=== PATIENT | female | born 1990 | race Caucasian/White ===

== ENCOUNTER 2017-12-09 17:12 | Emergency (ER) | payer SELFPAY ==
[2017-12-09] MEDS ORDERED: diPHENhydraMINE PO* 50 MG PO ONE (20:07)
[2017-12-09] MEDS ORDERED: predniSONE TAB* 20 MG PO ONE (20:07)
--- NOTE | 2017-12-09 20:13 | ED ---
Skin Complaint - HPI Summary HPI Summary: 27 female presents to ED with complaints of rash and possible bed bug bites that occurred 2 days ago and has since worsened. Patient states she was visiting a friend in [place], fell asleep on their cough and woke up in the morning with bites and noted bugs on her arms and head. Patient went straight home, did not have luggage, and stripped clothes prior to entering her home. Was able to successfully eradicate bed bugs. Over the past two days has been experiencing worsening in rash and bed bug bites on bilateral arms, neck and head/ears. States they are itchy. Has been using hydrocortisone cream daily without significant relief. Significant other also has some bites that was in the house as well, however not as bad. No other complaints. No fever/chills. No PMHx. Has not noticed any bugs since incident. No new lotions, soaps, foods, medications or detergents. - History of Current Complaint Chief Complaint: EDRashSkinAbscess Time Seen by Provider: 12/09/17 17:51 Stated Complaint: POSS ALLERGIC REACTION Hx Obtained From: Patient Onset/Duration: Started Days Ago, Still Present, Worse Since Skin Exposure Onset/Duration: Days Ago Timing: Constant Current Severity: None Pain Intensity: 0 Pain Scale Used: 0-10 Numeric Skin Location: Diffuse Aggravating Symptom(s): Wet Conditions, Humidity Alleviating Symptom(s): Treatment EDITORIAL SPECIALIST: - hydrocortisone cream Associated Signs & Symptoms: Rash Related History: Insect Bite/Sting - "bed bugs" exposure - Allergy/Home Medications Allergies/Adverse Reactions: Allergies Allergy/AdvReac Type Severity Reaction Status Date / Time No Known Allergies Allergy Verified 12/09/17 17:22 PMH/Surg Hx/FS Hx/Imm Hx Endocrine/Hematology History: Denies: Hx Diabetes Cardiovascular History: Denies: Hx Hypertension Respiratory History: Denies: Hx Asthma - Surgical History Surgery Procedure, Year, and Place: n/a - Immunization History Immunizations Up to Date: Yes Infectious Disease History: No Infectious Disease History: Denies: Traveled Outside the [place] in Last 30 Days - Family History Known Family History: Positive: None - Social History Alcohol Use: Weekly Substance Use Type: Reports: None Smoking Status (MU): Unknown if Ever Smoked Review of Systems Constitutional: Negative Cardiovascular: Negative Respiratory: Negative Positive: Rash - itching All Other Systems Reviewed And Are Negative: Yes Physical Exam Triage Information Reviewed: Yes Vital Signs On Initial Exam: Initial Vitals Temp Pulse Resp BP Pulse Ox 98.9 F 92 18 114/67 100 12/09/17 17:18 12/09/17 17:18 12/09/17 17:18 12/09/17 17:18 12/09/17 17:18 Vital Signs Reviewed: Yes Appearance: Positive: Well-Appearing, No Pain Distress, Well-Nourished Skin: Positive: Warm, Skin Color Reflects Adequate Perfusion, Dry, Erythema @ - with small bites/papules, resembling bed bug bites diffuse b/l UE mainly at wrists, neck, ears, scalp upper back. pruritic, no drainage. Negative: Weeping Skin/Lesions, Brian Tracts Head/Face: Positive: Normal Head/Face Inspection - other than skin exam noted above Neck: Positive: Supple, Nontender Respiratory/Lung Sounds: Positive: Clear to Auscultation, Breath Sounds Present. Negative: Rales, Rhonchi, Wheezes Cardiovascular: Positive: Normal, RRR, Pulses are Symmetrical in both Upper and Lower Extremities. Negative: Murmur, Rub Musculoskeletal: Positive: Normal, Strength/ROM Intact Neurological: Positive: Normal, Sensory/Motor Intact, Alert, Oriented to Person Place, Time Diagnostics - Vital Signs Vital Signs Temp Pulse Resp BP Pulse Ox 12/09/17 17:18 98.9 F 92 18 114/67 100 - Laboratory Lab Statement: Any lab studies that have been ordered have been reviewed, and results considered in the medical decision making process. Course/Dx - Course Course Of Treatment: given prednisone and benadryl while in ED. Appears to be suffering from bed bug bites rash. will give antihistamine and oral steroid due to extent of rash. topical triamcinilone. educated on eradication. no other complaints/concerns. - Differential Diagnoses - Skin Complaint Differential Diagnoses: Allergic Reaction, Other - bed bugs - Diagnoses Provider Diagnoses: Bed bug bite, Rash Discharge - Discharge Plan Condition: Stable Disposition: HOME Prescriptions: diPHENhydraMINE PO* [Benadryl PO 25 MG TAB*] 25 mg PO Q6H PRN #15 tab PRN Reason: Itching predniSONE TAB* [Deltasone TAB*] 20 mg PO DAILY #2 tab Triamcinolone 0.5% CREAM(NF) [Triamcinolone 0.5% CREAM*] 1 applic TOPICAL BID PRN #1 tube PRN Reason: Rash Patient Education Materials: Acute Rash (ED), Bed Bugs (ED) Forms: *Work Release Referrals: [facility] [Outside] No Primary Care Phys,NOPCP [Primary Care Provider] - Additional Instructions: Take prescribed medication as directed. Steroid in the morning, benadryl at bedtime and at lunch time if able, starting tomorrow. Use topical cream to help with with itching and rash. Try to avoid itching. Any new or worsening symptoms please seek medical attention. Follow up with PCP. Wash clothes as discussed.
[2017-12-09 20:18] VITALS: BP 115/61
== END 2017-12-09 20:23 | disposition home or self-care (01) ==
LOC: ED 17:12
DX: T14.8XXA Other injury of unspecified body region, initial encounter (principal); W57.XXXA Bitten or stung by nonvenomous insect and other nonvenomous arthropods, initial encounter; Y92.9 Unspecified place or not applicable; R21 Rash and other nonspecific skin eruption
CPT/HCPCS: 99282; A9270-GY; J7512

== ENCOUNTER → 2018-01-26 22:00 | Emergency (ER) | payer SELFPAY ==
[2018-01-26 22:23] VITALS: BP 000/00
== END | disposition left against medical advice (07) ==
LOC: ED 22:00
DX: R00.2 Palpitations (principal); Z53.21 Procedure and treatment not carried out due to patient leaving prior to being seen by health care provider
CPT/HCPCS: 93005